=== PATIENT | female | born 1930 | race Caucasian/White ===

== ENCOUNTER → 2017-03-08 | Outpatient (CLI) | payer MEDICARE ==
[~2017-03-08] MED LIST: AEROCHAMBER1 DEV IH; APAP PO; ARMOUR THYROID15 MG PO; ARMOUR THYROID30 MG PO; CARBAMAZEPINE200 M1 PO; CELEBREX 200MG200 MG PO; CIPROFLOXACIN500 MG PO; CODEINE PO; GABAPENTIN100 M1 PO; HYDROXYZINE 25M25 MG PO; HYDROXYZINE50 MG PO; KEFLEX 500MG.500 MG PO; LEVAQUIN500 MG PO; MEDROL 4MG. DOSE4 MG PO; MELOXICAM15 MG PO; METOPROLOL25 MG PO; NORCO 325 MG-101 TAB PO; NORCO 325 MG-51 TAB PO; NYSTATIN C30 GM/TUBE EX; OSCAL 500MG. T500 MG PO; OSCAL ULTRA 6001 TA1 PO; OXYBUTYNIN5 MG PO; PROVENTIL0.09 MG/AC IH; SYNTHROID 0.00.05 MG PO; TRAMADOL 50MG T50 MG PO; TYLENOL ES500 MG PO; VICODIN 5/500 T1 TAB PO; VITAMIN B121 TA1 PO; VIVELLE TD; WARFARIN 3MG TAB3 MG PO; WARFARIN4 MG PO; [UNRECOGNIZED DRUG - OTHER] TD; [UNRECOGNIZED DRUG - REMARK] PO
--- NOTE | 2017-03-08 14:36 | ST MODIFIED BARIUM SWALLOW ---
SUBJECTIVE-DYSPHAGIA Date: 03/08/17 Time: 1315 Eval Type: Initial Certification - Admitted Date: Primary Diagnosis: Reason for Consult: DYSPHAGIA Pt/Caregiver Concerns: DIFFICULTY SWALLOWING Onset of symptoms- Symptoms have worsened? NO improved? NO resolved? NO since onset. Current Diet: REGULAR/THINS Allergies Coded Allergies: CHOCOLATE (FOOD) (From CHOCOLATE (FOOD/DRUG)) (Intermediate, I-ITCHING 03/12/15) chocolate flavor (From CHOCOLATE (FOOD/DRUG)) (Intermediate, I-ITCHING 03/12/15) phenytoin (From Dilantin) (Mild, 03/12/15) Penicillins (03/12/15) naproxen (03/12/15) Home Medications Active Scripts NYSTATIN (Nystatin Cr 100,000 Units/Gm 30GM) 15 GM EX QID #1 CRE Ref 2 Prov: 12/02/16 Hydroxyzine Hcl (Hydroxyzine) 50 MG PO Q8HP PRN itching #60 CAP Prov: 12/02/16 Reported Medications Thyroid ([place] Thyroid) 30 MG PO DAILY CARBAMAZEPINE (Carbamazepine 200MG) 200 MG PO BID Metoprolol Tartrate (Metoprolol) 25 MG PO DAILY Hydroxyzine Pamoate (Hydroxyzine) 25 MG PO QHSP PRN ITCHING Is this assessment r/t stroke? No OBJECTIVE COMMUNICATION/COGNITION Barriers to communication/cog? No ORAL-MOTOR STRUCTURE/FUNCTION Structure/Function WFL: Labial, Buccal, Lingual, Velar, Mandibular. Facial Asymmetry None Laryngeal Function Strong: Voluntary Cough, Throat Clearing. Vocal Quality Normal Dentition Poor dentition RESPIRATORY STATUS/HISTORY Is resp status/hx a concern? No DYSPHAGIA SIGNS W/CONSISTENCY Any S/S of Dysphagia? No VIDEO SWALLOW REPORT Radiologist: Tyrel OSCAR,Agustin Mcelroy Level of consciousness: Alert Position (degrees): 90 ORAL STAGE Consistencies used for study: Thin, Pudding, Mechanical Soft, Solid, Pill, MIXED - WFL: Bolus Formation:, Initiation of Swallow:. - No: Matty.spilled into pharynx, Oral Residue. PHARYNGEAL STAGE Consistencies used for study: Thin, Pudding, Mechanical Soft, Solid, Pill, MIXED Delayed Swallow Reflex? No Epiglottic Closure WFL Penetration-Laryngeal Vestibul No - Aspiration? No Pharyngeal Residue? No ASSESSMENT/PLAN ASSESSMENT Impression Ms. Bhatt, an 86 year old female, was referred for a MBS by her physician, Dr. Bailey. Ms. Bhatt reports that she has difficulty swallowing meats. Ms. Bhatt was given the following consistencies: thins via straw and open cup, pudding, mechanical soft, regular, mixed, and pill with thin wash. No signs of dysphagia were noted. It was noted Ms. Bhatt has what appears to be a diverticulum. The mechanical soft and regular consistency did show residue in the diverticulum after the swallow was completed. It is recommended that Ms. Bhatt be seen by ENT. At this time, speech therapy is not recommened. Thank you for this consult. PLAN RECOMMENDATIONS Diet: Regular/Thins Speech Therapy indicated No Additional Evals recommended: Mail Distribution Scheme Examiner SWALLOW GUIDELINES Standard Aspiration Prec., Alt Bite w/Sip Thru Meal PATIENT/CAREGIVER EDUCATION Able-recall/restate what told? Yes Rehab Medicare G Code Plan Medicare/G Code eligible? Yes Therapy Discipline Plan: QUALITY CONTROL COORDINATOR PLAN OF CARE G Code Current Status: SWALLOWING (G8996) Current Status Modifier: 1%-19% IMPAIRED (CI) G Code Goal Status: SWALLOWING (G8997) Goal Status Modifier: 1%-19% IMPAIRED (CI) G Code Discharge Status: SWALLOWING (G8998) Discharge Status Modifier: 1%-19% IMPAIRED (CI) If pt's [facility] benefits exhausted If patient's Medicare benefits are exhausted, please review: #Min Spent: 30 at [phone]
--- NOTE | 2017-03-08 14:36 | ST MODIFIED BARIUM SWALLOW ---
SUBJECTIVE-DYSPHAGIA Date: 03/08/17 Time: 1315 Eval Type: Initial Certification - Admitted Date: Primary Diagnosis: Reason for Consult: DYSPHAGIA Pt/Caregiver Concerns: DIFFICULTY SWALLOWING Onset of symptoms- Symptoms have worsened? NO improved? NO resolved? NO since onset. Current Diet: REGULAR/THINS Allergies Coded Allergies: CHOCOLATE (FOOD) (From CHOCOLATE (FOOD/DRUG)) (Intermediate, I-ITCHING 03/12/15) chocolate flavor (From CHOCOLATE (FOOD/DRUG)) (Intermediate, I-ITCHING 03/12/15) phenytoin (From Dilantin) (Mild, 03/12/15) Penicillins (03/12/15) naproxen (03/12/15) Home Medications Active Scripts NYSTATIN (Nystatin Cr 100,000 Units/Gm 30GM) 15 GM EX QID #1 CRE Ref 2 Prov: 12/02/16 Hydroxyzine Hcl (Hydroxyzine) 50 MG PO Q8HP PRN itching #60 CAP Prov: 12/02/16 Reported Medications Thyroid ([place] Thyroid) 30 MG PO DAILY CARBAMAZEPINE (Carbamazepine 200MG) 200 MG PO BID Metoprolol Tartrate (Metoprolol) 25 MG PO DAILY Hydroxyzine Pamoate (Hydroxyzine) 25 MG PO QHSP PRN ITCHING Is this assessment r/t stroke? No OBJECTIVE COMMUNICATION/COGNITION Barriers to communication/cog? No ORAL-MOTOR STRUCTURE/FUNCTION Structure/Function WFL: Labial, Buccal, Lingual, Velar, Mandibular. Facial Asymmetry None Laryngeal Function Strong: Voluntary Cough, Throat Clearing. Vocal Quality Normal Dentition Poor dentition RESPIRATORY STATUS/HISTORY Is resp status/hx a concern? No DYSPHAGIA SIGNS W/CONSISTENCY Any S/S of Dysphagia? No VIDEO SWALLOW REPORT Radiologist: Tyrel OSCAR,Agustin Mcelroy Level of consciousness: Alert Position (degrees): 90 ORAL STAGE Consistencies used for study: Thin, Pudding, Mechanical Soft, Solid, Pill, MIXED - WFL: Bolus Formation:, Initiation of Swallow:. - No: Matty.spilled into pharynx, Oral Residue. PHARYNGEAL STAGE Consistencies used for study: Thin, Pudding, Mechanical Soft, Solid, Pill, MIXED Delayed Swallow Reflex? No Epiglottic Closure WFL Penetration-Laryngeal Vestibul No - Aspiration? No Pharyngeal Residue? No ASSESSMENT/PLAN ASSESSMENT Impression Ms. Bhatt, an 86 year old female, was referred for a MBS by her physician, Dr. Bailey. Ms. Bhatt reports that she has difficulty swallowing meats. Ms. Bhatt was given the following consistencies: thins via straw and open cup, pudding, mechanical soft, regular, mixed, and pill with thin wash. No signs of dysphagia were noted. It was noted Ms. Bhatt has what appears to be a diverticulum. The mechanical soft and regular consistency did show residue in the diverticulum after the swallow was completed. It is recommended that Ms. Bhatt be seen by ENT. At this time, speech therapy is not recommened. Thank you for this consult. PLAN RECOMMENDATIONS Diet: Regular/Thins Speech Therapy indicated No Additional Evals recommended: Pinsetter Mechanic Helper SWALLOW GUIDELINES Standard Aspiration Prec., Alt Bite w/Sip Thru Meal PATIENT/CAREGIVER EDUCATION Able-recall/restate what told? Yes Rehab Medicare G Code Plan Medicare/G Code eligible? Yes Therapy Discipline Plan: ADJUNCT PROFESSOR OF VOICE PLAN OF CARE G Code Current Status: SWALLOWING (G8996) Current Status Modifier: 1%-19% IMPAIRED (CI) G Code Goal Status: SWALLOWING (G8997) Goal Status Modifier: 1%-19% IMPAIRED (CI) G Code Discharge Status: SWALLOWING (G8998) Discharge Status Modifier: 1%-19% IMPAIRED (CI) If pt's [facility] benefits exhausted If patient's Medicare benefits are exhausted, please review: #Min Spent: 30 at [phone]
--- NOTE | 2017-03-08 15:44 | RADIOLOGY REPORT PS360 ---
UGI SERIES W/O AIR CLINICAL INDICATION: DYSPHAGIA ORDERING PHYSICIAN: Zuhair Bailey MD PATIENT AGE: 86 years COMPARISON: None FINDINGS: There is a large hiatal hernia containing one half of the stomach. No obvious ulcer or mass is evident. The duodenum has an unremarkable appearance. Please see esophagus report for esophageal description IMPRESSION: 1. Large hiatal hernia. 2. No mass or ulcer.
--- NOTE | 2017-03-08 15:55 | RADIOLOGY REPORT PS360 ---
ESOPHAGUS W/CINERADIOGRAPHY: MODIFIED BARIUM SWALLOW 03/08/2017 12:40 PM CLINICAL HISTORY: Dysphasia ORDERING PHYSICIAN: Zuhair Bailey MD PATIENT AGE: 86 years COMPARISON: TECHNIQUE: Patient administered varying consistencies of barium contrast, while viewed in lateral position under real-time fluoroscopy with cine recording. FLUOROSCOPY TIME: 5 minutes and 6 seconds The study was performed in conjunction with speech pathologist. Please see that report & recommendations. FINDINGS: Patient was given varying consistencies of barium. This consisted of thin with straw and open cup, including, mechanical soft, regular, mixed, and pill with thin wash . There is no evidence of vestibular penetration or tracheal aspiration. No signs of dysphasia. 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 Just superior to this is an esophageal diverticulum. The diverticulum projects posteriorly. The barium tablet did enter the diverticulum but was washed out with additional barium. The diverticulum was not well seen on the frontal view. The patient was not able to stand upright and swallow barium and images were difficult to obtain with the patient sitting in a chair on the frontal view IMPRESSION: 1. No evidence of dysphasia. 2. 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 3. The patient does have large hiatal hernia as noted on the upper GI. Please see speech pathologist report and recommendations.
== END ==
LOC: RAD 11:00
DX: R13.10 Dysphagia, unspecified (principal)
CPT/HCPCS: G8996; G8997; G8998